=== PATIENT | male | born 1985 | race Two or more races ===

== ENCOUNTER 2016-05-09 05:10 | Outpatient (RCR) | payer OTHER ==
[~2016-05-09] VITALS: Ht 30.5 cm; Wt 0.5 kg
[2016-05-09] MEDS ORDERED: Succinylcholine 20mg/ml 10ml vial ONE (05:11)
[2016-05-09] MEDS ORDERED: Ketorolac 60mg Inj ONE (05:11)
[2016-05-09] MEDS ORDERED: NS 550ML IV ONE (05:11)
[2016-05-09] MEDS ORDERED: Methohexital Sodium Syr 100mg/10ml IVP ONE (05:11)
[2016-05-09] MEDS ORDERED: Midazolam 2mg/2ml Inj ONE (05:11)
== END 2016-05-15 | disposition home or self-care (01) ==
LOC: ECT 05:10
DX: F31.81 Bipolar II disorder (principal); Z88.0 Allergy status to penicillin; F34.1 Dysthymic disorder
CPT/HCPCS: 90870; J0330; J2250; J7040

== ENCOUNTER 2016-06-06 10:15 | Outpatient (RCR) | payer OTHER | END 2016-06-12 | disposition home or self-care (01) | LOC: ECT 10:15 | DX: F31.81 Bipolar II disorder (principal); Z88.0 Allergy status to penicillin; F34.1 Dysthymic disorder ==

== ENCOUNTER 2016-06-13 11:30 | Outpatient (RCR) | payer OTHER ==
[~2016-06-13] VITALS: Ht 186.7 cm; Wt 116.6 kg
[2016-06-13] MEDS ORDERED: NS 550ML IV ONE (11:31)
[2016-06-13] MEDS ORDERED: Ketorolac 30mg Inj ONE (11:31)
[2016-06-13] MEDS ORDERED: Methohexital Sodium Syr 100mg/10ml IVP ONE (11:31)
[2016-06-13] MEDS ORDERED: Midazolam 2mg/2ml Inj ONE (11:31)
[2016-06-13] MEDS ORDERED: Succinylcholine 20mg/ml 10ml vial ONE (11:31)
[2016-07-11] MEDS ORDERED: Ketorolac 60mg Inj ONE (11:00)
[2016-07-11] MEDS ORDERED: Midazolam 2mg/2ml Inj ONE (11:00)
[2016-07-11] MEDS ORDERED: Methohexital Sodium 500mg Vial IVP ONE (11:00)
[2016-07-11] MEDS ORDERED: NS 550ML IV ONE (11:00)
[2016-07-11] MEDS ORDERED: Succinylcholine 20mg/ml 10ml vial ONE (11:00)
== END 2016-07-13 | disposition home or self-care (01) ==
LOC: ECT 11:30
DX: F31.81 Bipolar II disorder (principal); Z88.0 Allergy status to penicillin
CPT/HCPCS: 90870; J0330; J1885; J2250; J3490; J7040

== ENCOUNTER 2016-08-08 05:07 | Outpatient (RCR) | payer OTHER ==
[~2016-08-08] VITALS: Ht 185.4 cm; Wt 116.6 kg
[2016-08-08] MEDS ORDERED: Midazolam 2mg/2ml Inj ONE (05:08)
[2016-08-08] MEDS ORDERED: Succinylcholine 20mg/ml 10ml vial ONE (05:08)
[2016-08-08] MEDS ORDERED: Methohexital Sodium Syr 100mg/10ml IVP ONE (05:08)
[2016-08-08] MEDS ORDERED: Ketorolac 60mg Inj ONE (05:08)
[2016-08-08] MEDS ORDERED: Atropine Sulfate 0.4mg/ml inj IVP PRN (08:43)
== END 2016-08-12 | disposition home or self-care (01) ==
LOC: ECT 05:07
DX: F31.81 Bipolar II disorder (principal)
CPT/HCPCS: 90870; J0330; J2250

== ENCOUNTER 2016-08-29 04:49 | Outpatient (RCR) | payer OTHER ==
[~2016-08-29] VITALS: Ht 185.4 cm; Wt 116.6 kg
[2016-08-29] MEDS ORDERED: Succinylcholine 20mg/ml 10ml vial ONE (04:50)
[2016-08-29] MEDS ORDERED: Midazolam 2mg/2ml Inj ONE (04:50)
[2016-08-29] MEDS ORDERED: Ketorolac 60mg Inj ONE (04:50)
[2016-08-29] MEDS ORDERED: NS 550ML IV ONE (04:50)
[2016-08-29] MEDS ORDERED: Methohexital Sodium Syr 100mg/10ml IVP ONE (04:50)
== END 2016-09-12 | disposition home or self-care (01) ==
LOC: ECT 04:49
DX: F31.81 Bipolar II disorder (principal)
CPT/HCPCS: 90870; J0330; J2250; J7040

== ENCOUNTER 2016-09-26 07:00 | Outpatient (RCR) | payer OTHER ==
[~2016-09-26] VITALS: Ht 186.7 cm; Wt 116.6 kg
[2016-09-26] MEDS ORDERED: Ketorolac 60mg Inj ONE (07:01)
[2016-09-26] MEDS ORDERED: Succinylcholine 20mg/ml 10ml vial ONE (07:01)
[2016-09-26] MEDS ORDERED: NS 275ml ONE (07:01)
[2016-09-26] MEDS ORDERED: Methohexital Sodium Syr 100mg/10ml IVP ONE (07:01)
== END 2016-10-12 | disposition home or self-care (01) ==
LOC: ECT 07:00
DX: F31.81 Bipolar II disorder (principal)
CPT/HCPCS: 90870; J0330; J7050; J2250

== ENCOUNTER 2016-10-31 08:47 | Outpatient (RCR) | payer OTHER ==
[~2016-10-31] VITALS: Ht 186.7 cm; Wt 116.6 kg
[2016-10-31] MEDS ORDERED: Methohexital Sodium Syr 100mg/10ml IVP ONE (08:48)
[2016-10-31] MEDS ORDERED: Succinylcholine 20mg/ml 10ml vial ONE (08:48)
[2016-10-31] MEDS ORDERED: Midazolam 2mg/2ml Inj ONE (08:48)
[2016-10-31] MEDS ORDERED: NS 550ML IV ONE (08:48)
[2016-10-31] MEDS ORDERED: Ketorolac 60mg Inj ONE (08:48)
== END 2016-11-12 | disposition home or self-care (01) ==
LOC: ECT 08:47
DX: F31.81 Bipolar II disorder (principal)
CPT/HCPCS: 90870; J0330; J2250; J7040

== ENCOUNTER 2016-12-05 05:10 | Outpatient (RCR) | payer OTHER ==
[~2016-12-05] VITALS: Ht 186.7 cm; Wt 116.6 kg
[2016-12-05] MEDS ORDERED: Methohexital Sodium Syr 100mg/10ml IVP ONE (05:11)
[2016-12-05] MEDS ORDERED: NS 550ML IV ONE (05:11)
[2016-12-05] MEDS ORDERED: Succinylcholine 20mg/ml 10ml vial ONE (05:11)
[2016-12-05] MEDS ORDERED: Ketorolac 60mg Inj ONE (05:11)
== END 2016-12-13 | disposition home or self-care (01) ==
LOC: ECT 05:10
DX: F31.81 Bipolar II disorder (principal)
CPT/HCPCS: 90870; J0330; J3360; J7040

== ENCOUNTER 2017-01-16 05:10 | Outpatient (RCR) | payer OTHER ==
[~2017-01-16] VITALS: Ht 186.7 cm; Wt 116.6 kg
[2017-01-16] MEDS ORDERED: Methohexital Sodium Syr 100mg/10ml IVP ONE (05:11)
[2017-01-16] MEDS ORDERED: Succinylcholine 20mg/ml 10ml vial ONE (05:11)
[2017-01-16] MEDS ORDERED: NS 500ML IV ONE (05:11)
[2017-01-16] MEDS ORDERED: Ketorolac 60mg Inj ONE (05:11)
[2017-01-16] MEDS ORDERED: Atropine Sulfate 0.4mg/ml inj IVP PRN (08:48)
[2017-01-16] MEDS ORDERED: Sodium Chloride 500ML 500 ML IV ONE (08:48)
== END 2017-02-12 | disposition home or self-care (01) ==
LOC: ECT 05:10
DX: F31.81 Bipolar II disorder (principal)
CPT/HCPCS: 90870; J0330; J3360; J7040

== ENCOUNTER 2017-02-27 07:15 | Outpatient (RCR) | payer OTHER ==
[~2017-02-27] VITALS: Ht 185.4 cm; Wt 116.6 kg
[2017-02-27] MEDS ORDERED: Methohexital Sodium 500mg Vial IVP ONE (07:16)
[2017-02-27] MEDS ORDERED: Ketorolac 60mg Inj ONE (07:16)
[2017-02-27] MEDS ORDERED: Succinylcholine 20mg/ml 10ml vial ONE (07:16)
[2017-02-27] MEDS ORDERED: NS 500ML ONE (07:16)
[2017-02-27 08:25] VITALS: BP 141/90
[2017-02-27] MEDS ORDERED: Sodium Chloride 500ML 500 ML IV ONE (08:46)
[2017-02-27 08:50] VITALS: BP 124/58
[2017-02-27 08:55] VITALS: BP 118/57
[2017-02-27 09:00] VITALS: BP 114/58
[2017-02-27 09:05] VITALS: BP 114/58
== END 2017-03-14 | disposition home or self-care (01) ==
LOC: ECT 07:15
DX: F31.81 Bipolar II disorder (principal)
CPT/HCPCS: 90870; J0330; J3360; J3490; J7040

== ENCOUNTER 2017-04-24 06:13 | Outpatient (RCR) | payer OTHER ==
[~2017-04-24] VITALS: Ht 186.7 cm; Wt 116.6 kg
[2017-04-24] MEDS ORDERED: Succinylcholine 20mg/ml 10ml vial ONE (06:14)
[2017-04-24] MEDS ORDERED: Methohexital Sodium Syr 100mg/10ml IVP ONE (06:14)
[2017-04-24] MEDS ORDERED: Midazolam 2mg/2ml Inj ONE (06:14)
[2017-04-24] MEDS ORDERED: NS 500ML ONE (06:14)
[2017-04-24] MEDS ORDERED: Ketorolac 60mg Inj ONE (06:14)
[2017-04-24 08:45] VITALS: BP 140/84
[2017-04-24] MEDS ORDERED: Sodium Chloride 500ML 500 ML IV ONE (09:08)
[2017-04-24] MEDS ORDERED: Atropine Sulfate 0.4mg/ml inj IVP PRN (09:08)
[2017-04-24 09:10] VITALS: BP 123/57
[2017-04-24 09:15] VITALS: BP 119/87
[2017-04-24 09:20] VITALS: BP 119/54
[2017-04-24 09:25] VITALS: BP 137/60
== END 2017-05-15 | disposition home or self-care (01) ==
LOC: ECT 06:13
DX: F31.81 Bipolar II disorder (principal); F34.1 Dysthymic disorder
CPT/HCPCS: 90870; J0330; J2250; J7040